=== PATIENT | male | born 1955 | race Caucasian/White ===

== ENCOUNTER 2021-09-08 20:48 | Inpatient (IN) | payer MEDICARE, MEDICAID ==
[~2021-09-08] VITALS: Ht 188 cm; Wt 110.0 kg
[~2021-09-08 20:48] MED LIST: NO HOME MEDS
--- NOTE | 2021-09-08 20:54 | NUR ---
SHIMA [facility] RELATIONS DIRECTOR [facility] [phone]
[2021-09-08] MEDS ORDERED: etomidate 2mg/ml inj. IV ONE (21:00)
[2021-09-08] MEDS ORDERED: rocuronium 10mg/ml inj IV ONE (21:00)
[2021-09-08] MEDS ORDERED: albuterol 2.5 MG/3 ML nebule CONTNEB PRN (21:00)
[2021-09-08] MEDS ORDERED: normal saline 1000ML IV soln IVB ONE (21:05)
[2021-09-08 21:06] VITALS: BP 138/96
[2021-09-08 21:22] LABS: ABG BASE EXCESS -13.8 mmol/L (-2.0-2.0); ABG HCO3 19.8 mmol/L (22.0-26.0); ABG OXYGEN SATURATION 97.9 % (94-97); ABG PCO2 (T) 85.6 mmHg (35.0-48.0); ABG PO2 (T) 154.4 mmHg (75.0-100.0); ALLEN'S TEST POSITIVE; FCOHb 4.5 % (0.0-3.9); FMetHb 0.1 % (0.0-1.5); FO2Hb 93.4 % (94-97); PATIENT TEMPERATURE 35.8; PEEP 5 cm H2O; RESPIRATORY RATE 20 b/min; TIDAL VOLUME 450 mL; TOTAL HEMOGLOBIN 14.1 G/dl (14.0-18.0)
[2021-09-08 21:25] LABS: BASOPHILS # (AUTO) 0.1 X10'3 (0-0.2); BASOPHILS % (AUTO) 0.4 % (0-1); EOSINOPHILS # (AUTO) 0.3 X10'3 (0-0.9); EOSINOPHILS % (AUTO) 2.3 % (0-6); HEMATOCRIT 41.6 % (42.0-52.0); HEMOGLOBIN 13.4 g/dl (14.0-17.9); LYMPHOCYTES % (AUTO) 48.7 % (21-51); MEAN CORPUSCULAR HEMOGLOBIN 30.3 PG (27.0-31.0); MEAN CORPUSCULAR HGB CONC 32.4 g/dL (33.0-36.5); MEAN CORPUSCULAR VOLUME 93.6 FL (78-98); MEAN PLATELET VOLUME 8.6 FL (7.4-10.4); MONOCYTES % (AUTO) 7.2 % (2-12); NEUTROPHILS # (AUTO) 5.9 X10'3 (1.8-7.7); NEUTROPHILS % (AUTO) 41.4 % (42-75); PLATELET COUNT 224 X10'3 (140-440); RED BLOOD COUNT 4.44 X10'6 (4.70-6.10); RED CELL DISTRIBUTION WIDTH 15.4 % (11.5-14.5); WHITE BLOOD COUNT 14.4 X10'3 (4.5-11.0)
[2021-09-08 21:29] LABS: CLARITY,URINE SLIGHTLY CLOUDY (Clear); COLOR,URINE YELLOW (Yellow); GLUCOSE, URINE NEGATIVE (Neg); KETONES,URINE NEGATIVE (Neg); LEUKOCYTE ESTERASE ,URINE NEGATIVE (Neg); NITRITES, URINE NEGATIVE (Neg); OCCULT BLOOD,URINE MODERATE (Neg); PROTEIN,URINE NEGATIVE (Neg)
--- NOTE | 2021-09-08 21:29 | NUR ---
RT AT BEDSIDE
[2021-09-08 21:35] LABS: UA COLLECTION TYPE NON-SPECIFIED
[2021-09-08 21:36] LABS: APTT 29 SECONDS (22-32)
[2021-09-08 21:39] LABS: ALANINE AMINOTRANSFERASE 137 U/L (12-78); ALBUMIN 3.6 G/DL (3.4-5.0); ALKALINE PHOSPHATASE 130 IU/L (46-116); ANION GAP 15 (8-16); ASPARTATE AMINO TRANSFERASE 122 U/L (10-37); BILIRUBIN,TOTAL 0.3 MG/DL (0.1-1.0); BLOOD UREA NITROGEN 18 MG/DL (7-18); BUN/CREATININE RATIO 15.1 (5.4-32.0); CALCIUM 8.7 MG/DL (8.5-10.1); CHLORIDE 102 MMOL/L (99-107); CREATININE 1.19 MG/DL (0.60-1.10); GLUCOSE 218 MG/DL (70-104); SODIUM 144 MMOL/L (135-145); TOTAL CARBON DIOXIDE 27.2 MMOL/L (24-32); TOTAL PROTEIN 7.1 G/DL (6.4-8.2); eGFR 61 ML/MIN
[2021-09-08 21:53] LABS: POTASSIUM 4.3 MMOL/L (3.5-5.1)
[2021-09-08] MEDS ORDERED: fentaNYL/PF 50MCG/1 ML 2ML syringe IV ONE (21:55)
[2021-09-08] MEDS ORDERED: MIDAZolam 5mg/ml 2ml vial IV ONE (21:55)
[2021-09-08 21:57] LABS: WBC,URINE 0-4 /HPF (0-4)
[2021-09-08 21:58] LABS: AMORPHOUS URATES 1+; BACTERIA,URINE FEW /HPF (Neg); MUCUS STRANDS FEW /LPF (Neg); SQUAMOUS EPITHELIAL CELL,UR FEW /LPF (FEW)
[2021-09-08] MEDS ORDERED: iohexol 350MG/ML 100ml bottle IV ONE (22:12)
[2021-09-08 22:26] VITALS: BP 74/53
[2021-09-08] MEDS ORDERED: etomidate 2mg/ml inj. ONE (23:00)
[2021-09-08] MEDS ORDERED: rocuronium bromide 100mg/10ml (10mg/ml) injection IV ONE (23:00)
[2021-09-08] MEDS: FENTANYL-0.9 % NACL/PF 100 ML IV PRN (23:11)
[2021-09-08] MEDS: midazolam 100mg in NS 100ml 100 ML IV PRN (23:12)
[2021-09-08] MEDS ORDERED: ondansetron/PF 4mg/2ml inj IV PRN (23:15)
[2021-09-08] MEDS ORDERED: potassium Cl 20 mEq SR tablet PO PRN (23:15)
[2021-09-08] MEDS ORDERED: normal saline 1000ml 1,000 ML IV SCH (23:15)
[2021-09-08] MEDS ORDERED: magnesium 2GM in 50ml NS 50 ML IV PRN (23:15)
[2021-09-08] MEDS ORDERED: Neutra Phos packet PO PRN (23:15)
[2021-09-08] MEDS ORDERED: acetaminophen 325mg tablet PO PRN (23:15)
[2021-09-08] MEDS ORDERED: magnesium 4gm in 100ml NS 100 ML IV PRN (23:15)
[2021-09-08] MEDS ORDERED: sodium phosphate inj. 15 MMOL in dextrose 5%-water 250 ML IV PRN (23:15)
[2021-09-08] MEDS ORDERED: morphine 2 MG/ML inj. syringe IV PRN (23:15)
[2021-09-08] MEDS ORDERED: dextrose 50%-water 50ml dispensing syringe IV PRN (23:15)
[2021-09-08] MEDS ORDERED: sodium phosphate inj. 30 MMOL in dextrose 5%-water 250 ML IV PRN (23:15)
[2021-09-08] MEDS ORDERED: CISatracurium **Bolus** 2 mg/ml inj IV PRN (23:15)
[2021-09-08] MEDS ORDERED: magnesium Cl slow-release 64mg tablet PO PRN (23:15)
[2021-09-08] MEDS ORDERED: magnesium hydroxide 30ml (MOM) UD suspension PO PRN (23:15)
[2021-09-08] MEDS ORDERED: LIDOcaine 2% 10ml TOPICAL JELLY (Urojet) TP ONE (23:15)
[2021-09-08] MEDS ORDERED: morphine 4 MG/ML inj SYRINge IV PRN (23:15)
[2021-09-08] MEDS ORDERED: CefTRIAXone/D5W-Rocephin 1gm 50 ML IV ONE (23:30)
[2021-09-08] MEDS ORDERED: azithromycin/NS 500mg/250ml 250 ML IV ONE (23:40)
[2021-09-08 23:57] LABS: BASOPHILS # (AUTO) 0.1 X10'3 (0-0.2); BASOPHILS % (AUTO) 0.4 % (0-1); EOSINOPHILS # (AUTO) 0.2 X10'3 (0-0.9); EOSINOPHILS % (AUTO) 0.8 % (0-6); HEMATOCRIT 41.1 % (42.0-52.0); HEMOGLOBIN 13.7 g/dl (14.0-17.9); LYMPHOCYTES # (AUTO) 2.5 X10'3 (1.1-4.8); LYMPHOCYTES % (AUTO) 10.4 % (21-51); MEAN CORPUSCULAR HEMOGLOBIN 30.4 PG (27.0-31.0); MEAN CORPUSCULAR HGB CONC 33.3 g/dL (33.0-36.5); MEAN CORPUSCULAR VOLUME 91.1 FL (78-98); MONOCYTES # (AUTO) 0.7 X10'3 (0-0.9); MONOCYTES % (AUTO) 3.1 % (2-12); NEUTROPHILS # (AUTO) 20.2 X10'3 (1.8-7.7); NEUTROPHILS % (AUTO) 85.3 % (42-75); PLATELET COUNT 301 X10'3 (140-440); RED BLOOD COUNT 4.51 X10'6 (4.70-6.10); RED CELL DISTRIBUTION WIDTH 15.2 % (11.5-14.5); WHITE BLOOD COUNT 23.6 X10'3 (4.5-11.0)
[2021-09-09] VITALS (31 sets, daily range): BP systolic 80–157; BP diastolic 48–96
[2021-09-09] MEDS ORDERED: heparin, porcine 5000 units/ml vial SQ SCH
[2021-09-09] MEDS ORDERED: VANCOMYCIN 1GM/200ML IVPB 200 ML IV ONE (00:05)
[2021-09-09] MEDS ORDERED: vancomycin 1,500 MG in NS 300ml IV soln IV ONE (00:08)
[2021-09-09 00:11] LABS: MAGNESIUM 2.2 MG/DL (1.5-2.4); PHOSPHORUS 5.6 MG/DL (2.3-4.5)
[2021-09-09 00:12] LABS: LACTIC SEPSIS 2.1 MMOL/L (0.4-2.0)
[2021-09-09] MEDS ORDERED: UNABLE TO OBTAIN (00:17)
[2021-09-09 00:49] LABS: PLATELET ESTIMATE NORMAL; TOTAL CELLS COUNTED 100
--- NOTE | 2021-09-09 01:00 | NUR ---
Admission -Pt admitted from ED, intubated & sedated unresponsive, Collier catheter not draining urine.
[2021-09-09 01:07] LABS: PLATELET ESTIMATE NORMAL; TOTAL CELLS COUNTED 100
[2021-09-09] MEDS: ipratropium/albuterol 3ml nebule NEB SCH ×7 (01:25→22:55)
[2021-09-09] MEDS: normal saline 1000ml 1,000 ML IV SCH ×2 (01:52→20:13)
--- NOTE | 2021-09-09 02:00 | NUR ---
Antibiotics not given in ED, had to wait for them to come up from pharmacy, late admin.
[2021-09-09] MEDS: K, MAG and/or Phos replacement - Verify level? MC SCH ×2 (03:00→08:00)
--- NOTE | 2021-09-09 03:00 | NUR ---
RN Note -No Collier output. Bladder scan showed 600 mls. Catheter removed and faviola red blood spurted from urethra. New Collier inserted immediately. 750 ml drained. Bleeding stopped.
[2021-09-09] MEDS: piperacillin/tazo 3.375gm/50ml 50 ML IV SCH ×3 (03:09→15:34)
[2021-09-09 03:30] LABS: BASOPHILS % (AUTO) 0.1 % (0-1); EOSINOPHILS # (AUTO) 0.1 X10'3 (0-0.9); EOSINOPHILS % (AUTO) 0.3 % (0-6); HEMATOCRIT 41.1 % (42.0-52.0); HEMOGLOBIN 13.3 g/dl (14.0-17.9); LYMPHOCYTES # (AUTO) 1.3 X10'3 (1.1-4.8); LYMPHOCYTES % (AUTO) 6.6 % (21-51); MEAN CORPUSCULAR HEMOGLOBIN 29.4 PG (27.0-31.0); MEAN CORPUSCULAR HGB CONC 32.3 g/dL (33.0-36.5); MEAN PLATELET VOLUME 7.9 FL (7.4-10.4); MONOCYTES # (AUTO) 1.8 X10'3 (0-0.9); MONOCYTES % (AUTO) 9.2 % (2-12); NEUTROPHILS # (AUTO) 16.3 X10'3 (1.8-7.7); NEUTROPHILS % (AUTO) 83.8 % (42-75); PLATELET COUNT 286 X10'3 (140-440); RED BLOOD COUNT 4.52 X10'6 (4.70-6.10); RED CELL DISTRIBUTION WIDTH 14.9 % (11.5-14.5); WHITE BLOOD COUNT 19.4 X10'3 (4.5-11.0)
[2021-09-09 03:50] LABS: ALBUMIN 3.3 G/DL (3.4-5.0); ANION GAP 4 (8-16); BLOOD UREA NITROGEN 23 MG/DL (7-18); BUN/CREATININE RATIO 20.4 (5.4-32.0); CALCIUM 6.9 MG/DL (8.5-10.1); CHLORIDE 110 MMOL/L (99-107); CREATININE 1.13 MG/DL (0.60-1.10); GLUCOSE 116 MG/DL (70-104); POTASSIUM 4.7 MMOL/L (3.5-5.1); SODIUM 145 MMOL/L (135-145); TOTAL CARBON DIOXIDE 30.9 MMOL/L (24-32); eGFR 65 ML/MIN
[2021-09-09] MEDS ORDERED: methylPREDNISolone sod succ 125mg/2ml vial IV ONE (04:30)
[2021-09-09] MEDS: midazolam 100mg in NS 100ml 100 ML IV PRN (04:52)
[2021-09-09] MEDS: methylPREDNISolone sod succ 125mg/2ml vial IV SCH ×2 (05:03→20:14)
[2021-09-09] MEDS: pantoprazole 40MG/NS 100ML BAG 100 ML IV SCH ×2 (05:08→07:54)
[2021-09-09] MEDS: CISatracurium besylate inj. 100 MG in normal saline 100ml IV soln 90 ML IV SCH ×2 (05:24→20:17)
[2021-09-09 05:33] LABS: URINE AMPHETAMINE SCREEN NEGATIVE (Neg); URINE BARBITUATE SCREEN NEGATIVE (Neg); URINE BENZODIAZEPINES SCREEN POSITIVE (Neg); URINE CANNABINOID SCREEN NEGATIVE (Neg); URINE COCAINE SCREEN NEGATIVE (Neg); URINE METHADONE SCREEN NEGATIVE (Neg); URINE OPIATE SCREEN NEGATIVE (Neg); URINE PHENCYCLIDINE SCREEN NEGATIVE (Neg)
[2021-09-09] MEDS: NORepinephrine 8mg/ 250ml NS 250 ML IV SCH ×2 (07:30→22:22)
[2021-09-09] MEDS ORDERED: NORepinephrine 8mg/ 250ml NS 250 ML IV ONE (07:33)
[2021-09-09] MEDS: FENTANYL-0.9 % NACL/PF 100 ML IV PRN ×2 (07:51→23:36)
[2021-09-09] MEDS ORDERED: K and/or MAG REPLACEMENT MC SCH (08:00)
[2021-09-09] MEDS ORDERED: pantoprazole 40MG/NS 100ML BAG 100 ML IV SCH (08:00)
[2021-09-09] MEDS ORDERED: famotidine/PF 10 mg/ml inj IV SCH (08:00)
[2021-09-09 08:09] LABS: ABG BASE EXCESS -8.7 mmol/L (-2.0-2.0); ABG HCO3 23.4 mmol/L (22.0-26.0); ABG OXYGEN SATURATION 99.3 % (94-97); ABG PCO2 (T) 70.3 mmHg (35.0-48.0); ABG PO2 (T) 379.9 mmHg (75.0-100.0); ALLEN'S TEST POSITIVE; FMetHb 0.1 % (0.0-1.5); FO2Hb 98.2 % (94-97); PATIENT TEMPERATURE 32.3; PEEP 5 cm H2O; RESPIRATORY RATE 20 b/min; TIDAL VOLUME 400 mL; TOTAL HEMOGLOBIN 12.9 G/dl (14.0-18.0)
[2021-09-09] MEDS: insulin Lispro (HumaLOG) vial - multi-dose SQ SCH ×3 (09:00→18:00)
[2021-09-09 09:15] LABS: CKMB RELATIVE INDEX 3.2 RATIO (0-2.5); MAGNESIUM 1.9 MG/DL (1.5-2.4)
[2021-09-09] MEDS: heparin, porcine 5000 units/ml vial SQ SCH ×2 (09:30→20:14)
[2021-09-09 09:47] LABS: APTT 32 SECONDS (22-32)
[2021-09-09 11:07] LABS: BASOPHILS % (AUTO) 0.1 % (0-1); EOSINOPHILS % (AUTO) 0 % (0-6); HEMATOCRIT 38.9 % (42.0-52.0); HEMOGLOBIN 12.7 g/dl (14.0-17.9); LYMPHOCYTES # (AUTO) 0.4 X10'3 (1.1-4.8); LYMPHOCYTES % (AUTO) 2.3 % (21-51); MEAN CORPUSCULAR HEMOGLOBIN 29.8 PG (27.0-31.0); MEAN CORPUSCULAR HGB CONC 32.5 g/dL (33.0-36.5); MEAN CORPUSCULAR VOLUME 91.5 FL (78-98); MEAN PLATELET VOLUME 8.3 FL (7.4-10.4); MONOCYTES % (AUTO) 5.4 % (2-12); NEUTROPHILS # (AUTO) 17.2 X10'3 (1.8-7.7); NEUTROPHILS % (AUTO) 92.2 % (42-75); PLATELET COUNT 208 X10'3 (140-440); RED BLOOD COUNT 4.25 X10'6 (4.70-6.10); RED CELL DISTRIBUTION WIDTH 15.3 % (11.5-14.5); WHITE BLOOD COUNT 18.6 X10'3 (4.5-11.0)
[2021-09-09 11:26] LABS: ALANINE AMINOTRANSFERASE 170 U/L (12-78); ALBUMIN/GLOBULIN RATIO 1.2 (1.1-1.5); ALKALINE PHOSPHATASE 103 IU/L (46-116); ANION GAP 10 (8-16); ASPARTATE AMINO TRANSFERASE 152 U/L (10-37); BILIRUBIN,TOTAL 0.5 MG/DL (0.1-1.0); BLOOD UREA NITROGEN 28 MG/DL (7-18); CALCIUM 7.3 MG/DL (8.5-10.1); CHLORIDE 110 MMOL/L (99-107); CREATININE 1.12 MG/DL (0.60-1.10); GLUCOSE 117 MG/DL (70-104); MAGNESIUM 1.9 MG/DL (1.5-2.4); SODIUM 147 MMOL/L (135-145); TOTAL CARBON DIOXIDE 27.1 MMOL/L (24-32); TOTAL PROTEIN 5.6 G/DL (6.4-8.2); eGFR 66 ML/MIN
--- NOTE | 2021-09-09 12:41 | NUR ---
Angel Consult: Pt intubated s/p cardiac arrest DX COPD exacerbation on hypothermia protocol per EMR. OG in place w/ MAP 70 this AM during rounds. TF recs below in case prolonged intubation. Angel 10 w/ skin intact per EMR. Will continue to monitor for nutrition support needs on vent. Rec: 1. IF TF; Pivot 1.5 at 70ml/hr goal; would provide 1680ml volume/day, 2520 kcals, 1260ml water, and 158g protein. 2. IF TF; additional water flush 200ml Q4H 3. IF TF; PALB Q /; daily wts 4. routine bowel care 5. upon extubation; advance diet as medically indicated to regular Addendum: 09/09/21 at [address] Amended: Links added.
[2021-09-09] MEDS: vancomycin/NS 1 GM ADD-VANTAGE 250 ML IV SCH (13:42)
[2021-09-09] MEDS ORDERED: NICO-687 TOP (15:32)
[2021-09-09] MEDS ORDERED: ASPI-1071 PO (15:32)
[2021-09-09] MEDS ORDERED: SIME180C40 PO (15:32)
[2021-09-09] MEDS ORDERED: DOCU100C40 PO (15:32)
[2021-09-09] MEDS ORDERED: CARV6.253 PO (15:32)
[2021-09-09] MEDS ORDERED: FURO-150 PO (15:32)
[2021-09-09] MEDS ORDERED: ALBU2.5V13 NEB (15:32)
[2021-09-09] MEDS ORDERED: FLUT1BLS13 PO (15:32)
[2021-09-09] MEDS ORDERED: NICO-503 PO (15:32)
[2021-09-09] MEDS ORDERED: NICO-731 TOP (15:32)
[2021-09-09] MEDS ORDERED: ALBU8.5H17 INH (15:32)
[2021-09-09] MEDS ORDERED: ATOR40TA71 PO (15:32)
[2021-09-09] MEDS ORDERED: LISI5TAB22 PO (15:32)
[2021-09-09 16:22] LABS: ABG BASE EXCESS -6.7 mmol/L (-2.0-2.0); ABG HCO3 22.5 mmol/L (22.0-26.0); ABG OXYGEN SATURATION 96.1 % (94-97); ABG PCO2 (T) 53.4 mmHg (35.0-48.0); ABG PO2 (T) 69.8 mmHg (75.0-100.0); ALLEN'S TEST POSITIVE; FCOHb 0.6 % (0.0-3.9); FMetHb 0.1 % (0.0-1.5); FO2Hb 95.4 % (94-97); PATIENT TEMPERATURE 33.6; PEEP 5 cm H2O; RESPIRATORY RATE 24 b/min; TIDAL VOLUME 400 mL; TOTAL HEMOGLOBIN 13.7 G/dl (14.0-18.0)
[2021-09-09 19:39] LABS: ALBUMIN 2.7 G/DL (3.4-5.0); ANION GAP 13 (8-16); BLOOD UREA NITROGEN 26 MG/DL (7-18); BUN/CREATININE RATIO 25.2 (5.4-32.0); CALCIUM 7.6 MG/DL (8.5-10.1); CHLORIDE 110 MMOL/L (99-107); CKMB RELATIVE INDEX 2.8 RATIO (0-2.5); CREATINE KINASE 391 U/L (39-308); CREATININE 1.03 MG/DL (0.60-1.10); GLUCOSE 153 MG/DL (70-104); POTASSIUM 3.5 MMOL/L (3.5-5.1); SODIUM 146 MMOL/L (135-145); TOTAL CARBON DIOXIDE 22.9 MMOL/L (24-32); eGFR 72 ML/MIN
[2021-09-09] MEDS: lactobacillus rhamnosus 10,000 MMU CELLS/CAPSULE PO SCH (20:14)
[2021-09-09] MEDS ORDERED: gelatin sponge, absorbable (Gelfoam 100) sponge TP ONE (20:35)
[2021-09-09 21:57] LABS: ABG HCO3 20.8 mmol/L (22.0-26.0); ABG OXYGEN SATURATION 94.9 % (94-97); ABG PO2 (T) 56.4 mmHg (75.0-100.0); ALLEN'S TEST POSITIVE; FCOHb 0.6 % (0.0-3.9); FMetHb 0.1 % (0.0-1.5); FO2Hb 94.2 % (94-97); PATIENT TEMPERATURE 33.3; PEEP 5 cm H2O; RESPIRATORY RATE 26 b/min; TIDAL VOLUME 400 mL; TOTAL HEMOGLOBIN 13.6 G/dl (14.0-18.0)
[2021-09-10] VITALS (36 sets, daily range): BP systolic 86–146; BP diastolic 52–79
[2021-09-10] MEDS: vancomycin/NS 1 GM ADD-VANTAGE 250 ML IV SCH ×2 (00:16→13:04)
[2021-09-10] MEDS: piperacillin/tazo 3.375gm/50ml 50 ML IV SCH ×4 (00:19→23:50)
[2021-09-10] MEDS: normal saline 1000ml 1,000 ML IV SCH ×2 (01:55→09:59)
[2021-09-10 02:45] LABS: BASOPHILS % (AUTO) 0 % (0-1); EOSINOPHILS % (AUTO) 0 % (0-6); HEMATOCRIT 36.4 % (42.0-52.0); HEMOGLOBIN 11.9 g/dl (14.0-17.9); LYMPHOCYTES # (AUTO) 0.5 X10'3 (1.1-4.8); LYMPHOCYTES % (AUTO) 3.1 % (21-51); MEAN CORPUSCULAR HEMOGLOBIN 29.5 PG (27.0-31.0); MEAN CORPUSCULAR HGB CONC 32.6 g/dL (33.0-36.5); MEAN CORPUSCULAR VOLUME 90.5 FL (78-98); MEAN PLATELET VOLUME 8.4 FL (7.4-10.4); MONOCYTES # (AUTO) 0.5 X10'3 (0-0.9); MONOCYTES % (AUTO) 2.9 % (2-12); NEUTROPHILS # (AUTO) 15.9 X10'3 (1.8-7.7); PLATELET COUNT 178 X10'3 (140-440); RED BLOOD COUNT 4.02 X10'6 (4.70-6.10); RED CELL DISTRIBUTION WIDTH 15.3 % (11.5-14.5); WHITE BLOOD COUNT 16.9 X10'3 (4.5-11.0)
[2021-09-10] MEDS: ipratropium/albuterol 3ml nebule NEB SCH ×6 (02:46→23:30)
[2021-09-10 02:47] LABS: ALBUMIN 2.4 G/DL (3.4-5.0); ANION GAP 13 (8-16); BLOOD UREA NITROGEN 23 MG/DL (7-18); BUN/CREATININE RATIO 24.5 (5.4-32.0); CALCIUM 7.8 MG/DL (8.5-10.1); CHLORIDE 111 MMOL/L (99-107); CREATININE 0.94 MG/DL (0.60-1.10); GLUCOSE 179 MG/DL (70-104); MAGNESIUM 1.8 MG/DL (1.5-2.4); PHOSPHORUS 2.6 MG/DL (2.3-4.5); SODIUM 145 MMOL/L (135-145); TOTAL CARBON DIOXIDE 21.5 MMOL/L (24-32); eGFR 81 ML/MIN
[2021-09-10 02:49] LABS: POTASSIUM 2.9 MMOL/L (3.5-5.1)
[2021-09-10 03:06] LABS: ABG BASE EXCESS -5.1 mmol/L (-2.0-2.0); ABG HCO3 21.8 mmol/L (22.0-26.0); ABG OXYGEN SATURATION 95.9 % (94-97); ABG PCO2 (T) 40.5 mmHg (35.0-48.0); ABG PO2 (T) 62.9 mmHg (75.0-100.0); ALLEN'S TEST POSITIVE; FCOHb 0.2 % (0.0-3.9); FMetHb 0.3 % (0.0-1.5); FO2Hb 95.4 % (94-97); PATIENT TEMPERATURE 33.1; PEEP 5 cm H2O; RESPIRATORY RATE 26 b/min; TIDAL VOLUME 400 mL; TOTAL HEMOGLOBIN 12.7 G/dl (14.0-18.0)
[2021-09-10] MEDS: midazolam 100mg in NS 100ml 100 ML IV PRN ×4 (03:51→23:11)
[2021-09-10] MEDS: potassium Cl 20 mEq SR tablet PO PRN ×2 (04:14→10:19)
[2021-09-10] MEDS: lactobacillus rhamnosus 10,000 MMU CELLS/CAPSULE PO SCH ×2 (08:00→19:14)
[2021-09-10] MEDS: pantoprazole 40MG/NS 100ML BAG 100 ML IV SCH (08:00)
[2021-09-10] MEDS: methylPREDNISolone sod succ 125mg/2ml vial IV SCH ×2 (08:00→19:14)
[2021-09-10] MEDS: heparin, porcine 5000 units/ml vial SQ SCH ×2 (08:00→19:15)
[2021-09-10] MEDS: K, MAG and/or Phos replacement - Verify level? MC SCH (08:30)
[2021-09-10 08:56] LABS: BASOPHILS % (AUTO) 0.2 % (0-1); EOSINOPHILS % (AUTO) 0 % (0-6); HEMOGLOBIN 11.8 g/dl (14.0-17.9); LYMPHOCYTES # (AUTO) 0.7 X10'3 (1.1-4.8); LYMPHOCYTES % (AUTO) 3.2 % (21-51); MEAN CORPUSCULAR HEMOGLOBIN 29.1 PG (27.0-31.0); MEAN PLATELET VOLUME 8.7 FL (7.4-10.4); MONOCYTES # (AUTO) 0.8 X10'3 (0-0.9); MONOCYTES % (AUTO) 3.8 % (2-12); NEUTROPHILS % (AUTO) 92.8 % (42-75); PLATELET COUNT 203 X10'3 (140-440); RED BLOOD COUNT 4.07 X10'6 (4.70-6.10); RED CELL DISTRIBUTION WIDTH 15.3 % (11.5-14.5); WHITE BLOOD COUNT 21.5 X10'3 (4.5-11.0)
[2021-09-10] MEDS: insulin Lispro (HumaLOG) vial - multi-dose SQ SCH ×3 (09:00→14:11)
[2021-09-10 09:26] LABS: ALBUMIN 2.5 G/DL (3.4-5.0); ANION GAP 12 (8-16); BLOOD UREA NITROGEN 23 MG/DL (7-18); BUN/CREATININE RATIO 23.2 (5.4-32.0); CALCIUM 7.8 MG/DL (8.5-10.1); CHLORIDE 111 MMOL/L (99-107); CKMB RELATIVE INDEX 2.4 RATIO (0-2.5); CREATINE KINASE 309 U/L (39-308); CREATININE 0.99 MG/DL (0.60-1.10); GLUCOSE 196 MG/DL (70-104); MAGNESIUM 1.8 MG/DL (1.5-2.4); PHOSPHORUS 2.4 MG/DL (2.3-4.5); POTASSIUM 3.3 MMOL/L (3.5-5.1); SODIUM 146 MMOL/L (135-145); TOTAL CARBON DIOXIDE 23.2 MMOL/L (24-32); eGFR 76 ML/MIN
[2021-09-10] MEDS: FENTANYL-0.9 % NACL/PF 100 ML IV PRN ×4 (09:43→23:11)
[2021-09-10] MEDS ORDERED: PERFLUTREN PROTEIN-A MICROSPHR (Optison) 0.22 MG/ML 3ML VIAL IV ONE (12:10)
[2021-09-10] MEDS ORDERED: VANCOMYCIN LEVEL IV ONE (12:30)
[2021-09-10 13:45] LABS: ABG BASE EXCESS -4.8 mmol/L (-2.0-2.0); ABG HCO3 22.3 mmol/L (22.0-26.0); ABG OXYGEN SATURATION 93.4 % (94-97); ABG PCO2 (T) 47.9 mmHg (35.0-48.0); ABG PO2 (T) 64.4 mmHg (75.0-100.0); ALLEN'S TEST POSITIVE; FCOHb 0.3 % (0.0-3.9); FMetHb 0.1 % (0.0-1.5); PEEP 10 cm H2O; RESPIRATORY RATE 26 b/min; TIDAL VOLUME 400 mL; TOTAL HEMOGLOBIN 12.1 G/dl (14.0-18.0)
[2021-09-10 14:56] LABS: BASOPHILS % (AUTO) 0.1 % (0-1); EOSINOPHILS % (AUTO) 0 % (0-6); HEMATOCRIT 33.3 % (42.0-52.0); LYMPHOCYTES # (AUTO) 0.6 X10'3 (1.1-4.8); LYMPHOCYTES % (AUTO) 2.7 % (21-51); MEAN CORPUSCULAR HEMOGLOBIN 29.4 PG (27.0-31.0); MEAN CORPUSCULAR HGB CONC 33.1 g/dL (33.0-36.5); MEAN PLATELET VOLUME 8.3 FL (7.4-10.4); MONOCYTES # (AUTO) 0.6 X10'3 (0-0.9); MONOCYTES % (AUTO) 2.9 % (2-12); NEUTROPHILS # (AUTO) 19.8 X10'3 (1.8-7.7); NEUTROPHILS % (AUTO) 94.3 % (42-75); PLATELET COUNT 208 X10'3 (140-440); RED BLOOD COUNT 3.74 X10'6 (4.70-6.10); RED CELL DISTRIBUTION WIDTH 15.4 % (11.5-14.5)
[2021-09-10 15:10] LABS: ALANINE AMINOTRANSFERASE 94 U/L (12-78); ALBUMIN 2.4 G/DL (3.4-5.0); ALKALINE PHOSPHATASE 77 IU/L (46-116); ANION GAP 10 (8-16); ASPARTATE AMINO TRANSFERASE 52 U/L (10-37); BILIRUBIN,TOTAL 0.3 MG/DL (0.1-1.0); BLOOD UREA NITROGEN 23 MG/DL (7-18); BUN/CREATININE RATIO 23.2 (5.4-32.0); CALCIUM 7.8 MG/DL (8.5-10.1); CHLORIDE 114 MMOL/L (99-107); CREATININE 0.99 MG/DL (0.60-1.10); GLUCOSE 167 MG/DL (70-104); POTASSIUM 3.7 MMOL/L (3.5-5.1); SODIUM 147 MMOL/L (135-145); TOTAL CARBON DIOXIDE 23.3 MMOL/L (24-32); TOTAL PROTEIN 4.9 G/DL (6.4-8.2); eGFR 76 ML/MIN
[2021-09-10 15:16] LABS: HEMOGLOBIN A1C 6.1 % (4.5-6.2)
[2021-09-10 15:22] LABS: CKMB RELATIVE INDEX 2.5 RATIO (0-2.5); CREATINE KINASE 222 U/L (39-308); MAGNESIUM 1.9 MG/DL (1.5-2.4)
[2021-09-10] MEDS ORDERED: aspirin 81mg tab.chew PO ONE (16:52)
[2021-09-10] MEDS: NORepinephrine 8mg/ 250ml NS 250 ML IV SCH (18:59)
--- NOTE | 2021-09-10 19:00 | NUR ---
[facility] manager home called with medical information. Pt's pharmacy is [facility] on [address]. Clinic: [facility] Physician: Hermelinda Hernandez MD Cutter Wet Machine: Dr. Julio Gil
[2021-09-11] VITALS (32 sets, daily range): BP systolic 95–151; BP diastolic 58–88
[2021-09-11] MEDS ORDERED: VANCOmycin 1250MG/NS 250ml Bag 250 ML IV SCH (01:00)
[2021-09-11] MEDS: NORepinephrine 8mg/ 250ml NS 250 ML IV SCH ×2 (01:18→15:14)
[2021-09-11] MEDS: insulin Lispro (HumaLOG) vial - multi-dose SQ SCH ×2 (02:21→08:47)
[2021-09-11] MEDS: FENTANYL-0.9 % NACL/PF 100 ML IV PRN ×6 (02:44→22:52)
[2021-09-11] MEDS: normal saline 1000ml 1,000 ML IV SCH ×2 (02:44→17:28)
[2021-09-11] MEDS: midazolam 100mg in NS 100ml 100 ML IV PRN ×2 (02:44→08:26)
[2021-09-11] MEDS: ipratropium/albuterol 3ml nebule NEB SCH ×6 (02:57→23:19)
[2021-09-11 03:11] LABS: BASOPHILS % (AUTO) 0 % (0-1); EOSINOPHILS % (AUTO) 0 % (0-6); HEMATOCRIT 33.2 % (42.0-52.0); HEMOGLOBIN 10.8 g/dl (14.0-17.9); LYMPHOCYTES # (AUTO) 0.4 X10'3 (1.1-4.8); LYMPHOCYTES % (AUTO) 2.3 % (21-51); MEAN CORPUSCULAR HEMOGLOBIN 29.4 PG (27.0-31.0); MEAN CORPUSCULAR HGB CONC 32.6 g/dL (33.0-36.5); MEAN PLATELET VOLUME 8.8 FL (7.4-10.4); MONOCYTES # (AUTO) 0.5 X10'3 (0-0.9); MONOCYTES % (AUTO) 3.2 % (2-12); NEUTROPHILS # (AUTO) 16.4 X10'3 (1.8-7.7); NEUTROPHILS % (AUTO) 94.5 % (42-75); PLATELET COUNT 204 X10'3 (140-440); RED BLOOD COUNT 3.69 X10'6 (4.70-6.10); RED CELL DISTRIBUTION WIDTH 15.5 % (11.5-14.5); WHITE BLOOD COUNT 17.3 X10'3 (4.5-11.0)
[2021-09-11 03:27] LABS: ALBUMIN 2.3 G/DL (3.4-5.0); ANION GAP 8 (8-16); BLOOD UREA NITROGEN 24 MG/DL (7-18); BUN/CREATININE RATIO 23.8 (5.4-32.0); CALCIUM 8.1 MG/DL (8.5-10.1); CHLORIDE 114 MMOL/L (99-107); CREATININE 1.01 MG/DL (0.60-1.10); GLUCOSE 157 MG/DL (70-104); MAGNESIUM 1.7 MG/DL (1.5-2.4); PHOSPHORUS 2.5 MG/DL (2.3-4.5); POTASSIUM 3.9 MMOL/L (3.5-5.1); SODIUM 146 MMOL/L (135-145); TOTAL CARBON DIOXIDE 23.7 MMOL/L (24-32); eGFR 74 ML/MIN
[2021-09-11 03:30] LABS: ABG BASE EXCESS -4.2 mmol/L (-2.0-2.0); ABG HCO3 21.6 mmol/L (22.0-26.0); ABG OXYGEN SATURATION 93.8 % (94-97); ABG PCO2 (T) 41.8 mmHg (35.0-48.0); FCOHb 0.1 % (0.0-3.9); FMetHb 0.3 % (0.0-1.5); FO2Hb 93.4 % (94-97); PATIENT TEMPERATURE 36.7; PEEP 10 cm H2O; RESPIRATORY RATE 26 b/min; TIDAL VOLUME 450 mL; TOTAL HEMOGLOBIN 11.1 G/dl (14.0-18.0)
--- NOTE | 2021-09-11 07:30 | NUR ---
Upon assessment of patient, pupils were assessed. It was noted that the patient's left eye had something in it that seemed to look like a contact. The patient's eye was flushed with saline with no movement of the object. Another RN was brought into the room to have a second opinion. The object was easily removed and seemed to be a round plastic item that is firm. The item was placed into a cup with saline. Will inform .
[2021-09-11] MEDS ORDERED: aspirin 81mg, enteric-coated 1 TAB TABLET.DR PO SCH (08:00)
[2021-09-11] MEDS: K, MAG and/or Phos replacement - Verify level? MC SCH (08:00)
[2021-09-11] MEDS: methylPREDNISolone sod succ 125mg/2ml vial IV SCH ×2 (08:26→19:00)
[2021-09-11] MEDS: piperacillin/tazo 3.375gm/50ml 50 ML IV SCH ×3 (08:26→23:00)
[2021-09-11] MEDS: pantoprazole 40MG/NS 100ML BAG 100 ML IV SCH (08:26)
[2021-09-11] MEDS: lactobacillus rhamnosus 10,000 MMU CELLS/CAPSULE PO SCH (08:26)
[2021-09-11] MEDS: heparin, porcine 5000 units/ml vial SQ SCH ×2 (08:27→19:00)
--- NOTE | 2021-09-11 12:10 | NUR ---
Patient's versed turned off and then shortly after the patient started to tense up and was not getting his set tidal volumes on the ventilator and began to desaturation. Patient was suctioned and placed on 100% FiO2. Shortly after, patient recovered without any change in sedation. MD tolliver.
--- NOTE | 2021-09-11 13:00 | NUR ---
Per Dr. Boo during rounds: -Turn off Versed and see how the patient does. If he does poorly the give a 2 mg versed bolus and restart the drip and half of the rate which would be 5mg/hr. -Put in a tube feed consult -Send the foreign body from the eye to pathology for identification
[2021-09-11] MEDS ORDERED: fluconazole-Diflucan 200mg/NS 100 ML IV SCH (13:50)
--- NOTE | 2021-09-11 14:44 | NUR ---
TF consult: Pt remains intubated and sedated w/ TF to start per MD, see recs below. Rec: 1. Continuous TF using Pivot 1.5 at 70ml/hr goal; would provide 1680ml volume/day, 2520 kcals, 1260ml water, and 158g protein. 2. Additional water flush 200ml Q4H 3. PALB Q /; daily wts 4. routine bowel care 5. upon extubation; advance diet as medically indicated to regular Addendum: 09/11/21 at [address] Amended: Links added.
[2021-09-11] MEDS: fluconazole/NS 400mg/200ml bag 200 ML IV SCH (15:52)
[2021-09-11] MEDS ORDERED: acetaminophen 325mg/10.15ml oral unit dose solution OGT PRN (15:54)
[2021-09-11] MEDS ORDERED: Neutra Phos packet OGT PRN (15:55)
[2021-09-11] MEDS ORDERED: magnesium hydroxide 30ml (MOM) UD suspension OGT PRN (15:55)
[2021-09-11] MEDS ORDERED: POTASSIUM BICARB 20meq eff tab 20 MEQ TABLET.EFF PO PRN (15:56)
[2021-09-11] MEDS ORDERED: POTASSIUM BICARB 20meq eff tab 20 MEQ TABLET.EFF OGT PRN ×2 (15:57)
[2021-09-11] MEDS ORDERED: SIMETHICONE PO PRN (18:40)
[2021-09-11] MEDS ORDERED: simethicone 125mg capsule PO PRN (18:55)
[2021-09-11] MEDS: carvedilol 6.25mg tablet PO SCH (19:00)
[2021-09-11] MEDS: lactobacillus rhamnosus 10,000 MMU CELLS/CAPSULE OGT SCH (19:00)
[2021-09-11] MEDS: furosemide 20MG tablet PO SCH (19:03)
[2021-09-11] MEDS: insulin glargine (Lantus) pen - multi-dose SQ SCH (20:50)
[2021-09-11] MEDS ORDERED: propofol 1000mg/100ml bottle 100 ML IV ONE (23:37)
[2021-09-11] MEDS: propofol 1000mg/100ml bottle 100 ML IV SCH (23:47)
[2021-09-12] VITALS (31 sets, daily range): BP systolic 90–130; BP diastolic 51–83
[2021-09-12] MEDS: CISatracurium besylate inj. 100 MG in normal saline 100ml IV soln 90 ML IV SCH (00:31)
[2021-09-12 02:29] LABS: ALBUMIN 2.2 G/DL (3.4-5.0); ANION GAP 9 (8-16); BLOOD UREA NITROGEN 28 MG/DL (7-18); BUN/CREATININE RATIO 24.8 (5.4-32.0); CHLORIDE 116 MMOL/L (99-107); CREATININE 1.13 MG/DL (0.60-1.10); GLUCOSE 138 MG/DL (70-104); PREALBUMIN 15.4 MG/DL (19-36); SODIUM 149 MMOL/L (135-145); TOTAL CARBON DIOXIDE 23.9 MMOL/L (24-32); TRIGLYCERIDES 168 MG/DL (20-135); eGFR 65 ML/MIN
[2021-09-12] MEDS: FENTANYL-0.9 % NACL/PF 100 ML IV PRN ×4 (02:58→23:49)
[2021-09-12 03:19] LABS: BASOPHILS % (AUTO) 0.1 % (0-1); EOSINOPHILS % (AUTO) 0 % (0-6); HEMATOCRIT 29.4 % (42.0-52.0); HEMOGLOBIN 9.7 g/dl (14.0-17.9); LYMPHOCYTES # (AUTO) 0.2 X10'3 (1.1-4.8); LYMPHOCYTES % (AUTO) 2.6 % (21-51); MEAN CORPUSCULAR HEMOGLOBIN 29.8 PG (27.0-31.0); MEAN CORPUSCULAR HGB CONC 32.9 g/dL (33.0-36.5); MEAN CORPUSCULAR VOLUME 90.6 FL (78-98); MEAN PLATELET VOLUME 8.8 FL (7.4-10.4); MONOCYTES # (AUTO) 0.2 X10'3 (0-0.9); MONOCYTES % (AUTO) 2.8 % (2-12); NEUTROPHILS # (AUTO) 8.4 X10'3 (1.8-7.7); NEUTROPHILS % (AUTO) 94.5 % (42-75); PLATELET COUNT 160 X10'3 (140-440); RED BLOOD COUNT 3.25 X10'6 (4.70-6.10); RED CELL DISTRIBUTION WIDTH 16.1 % (11.5-14.5); WHITE BLOOD COUNT 8.9 X10'3 (4.5-11.0)
[2021-09-12] MEDS: ipratropium/albuterol 3ml nebule NEB SCH ×5 (03:46→19:08)
[2021-09-12 05:07] LABS: ABG BASE EXCESS -3.2 mmol/L (-2.0-2.0); ABG HCO3 20.5 mmol/L (22.0-26.0); ABG OXYGEN SATURATION 94.7 % (94-97); ABG PCO2 (T) 31.8 mmHg (35.0-48.0); ABG PO2 (T) 71.7 mmHg (75.0-100.0); ALLEN'S TEST POSITIVE; FCOHb 0.3 % (0.0-3.9); FO2Hb 94.4 % (94-97); PATIENT TEMPERATURE 36.7; PEEP 10 cm H2O; RESPIRATORY RATE 26 b/min; TIDAL VOLUME 450 mL; TOTAL HEMOGLOBIN 10.3 G/dl (14.0-18.0)
[2021-09-12] MEDS: normal saline 1000ml 1,000 ML IV SCH ×2 (06:03→19:54)
[2021-09-12] MEDS: NORepinephrine 8mg/ 250ml NS 250 ML IV SCH ×2 (06:03→19:06)
[2021-09-12] MEDS: hydrALAZINE 20mg/ml inj. IV SCH ×2 (07:03→13:34)
[2021-09-12] MEDS: K, MAG and/or Phos replacement - Verify level? MC SCH (07:04)
[2021-09-12] MEDS: carvedilol 6.25mg tablet PO SCH ×2 (07:04→19:52)
[2021-09-12] MEDS: pantoprazole 40MG/NS 100ML BAG 100 ML IV SCH (07:19)
[2021-09-12] MEDS: fluconazole/NS 400mg/200ml bag 200 ML IV SCH (07:19)
[2021-09-12] MEDS: lactobacillus rhamnosus 10,000 MMU CELLS/CAPSULE OGT SCH ×2 (07:20→19:52)
[2021-09-12] MEDS: atorvastatin 20mg tablet OGT SCH (07:20)
[2021-09-12] MEDS: piperacillin/tazo 3.375gm/50ml 50 ML IV SCH ×3 (07:20→23:48)
[2021-09-12] MEDS: aspirin 81mg tab.chew OGT SCH (07:20)
[2021-09-12] MEDS: methylPREDNISolone sod succ 125mg/2ml vial IV SCH ×2 (07:20→19:52)
[2021-09-12] MEDS: heparin, porcine 5000 units/ml vial SQ SCH ×2 (07:21→19:52)
[2021-09-12] MEDS: propofol 1000mg/100ml bottle 100 ML IV SCH (07:33)
[2021-09-12 07:53] LABS: MAGNESIUM 2.1 MG/DL (1.5-2.4); PHOSPHORUS 3.1 MG/DL (2.3-4.5)
[2021-09-12] MEDS ORDERED: non-formulary drug (Atorvastatin Calcium 1 TAB) PO SCH (08:00)
[2021-09-12] MEDS ORDERED: aspirin 81mg, enteric-coated 1 TAB TABLET.DR PO SCH (08:00)
[2021-09-12] MEDS: furosemide 20MG tablet PO SCH (08:00)
[2021-09-12] MEDS ORDERED: atorvastatin 20mg tablet PO SCH (08:00)
--- NOTE | 2021-09-12 11:11 | NUR ---
Reassessment: Pt remains intubated and sedated, now receiving TF at goal of Pivot 1.5 at 70ml/hr. Noted pt started on Propofol and current rate at 6.36ml/hr providing additional 168kcals/day. TF does not need to be adjusted at this time. Noted serum Na 149 though lab was drawn around when TF and water flushes were just started. Will hold on adjusting water flushes at this time. HUSSEIN d/w RN regarding TF and water flushes. [facility] 09/11. No change to recommendations at this time, will continue to monitor. Rec: 1. Continuous TF using Pivot 1.5 at 70ml/hr goal; would provide 1680ml volume/day, 2520 kcals, 1260ml water, and 158g protein. 2. Monitor Propofol rate and adjust TF as appropriate 2. Additional water flush 200ml Q4H; monitor serum Na 3. PALB Q /; daily wts 4. routine bowel care 5. upon extubation; advance diet as medically indicated to regular Addendum: 09/12/21 at [address] Amended: Links added.
[2021-09-12 12:30] LABS: OXYGEN SATURATION (MIXED VEN) 44.3 % (60-80); PO2 MIXED VENOUS (TEMP COR) 24.2 mmHg (35-46)
[2021-09-12] MEDS ORDERED: VANCOMYCIN LEVEL IV ONE (12:30)
[2021-09-12 12:36] LABS: ABG BASE EXCESS -5.2 mmol/L (-2.0-2.0); ABG HCO3 26.3 mmol/L (22.0-26.0); ABG OXYGEN SATURATION 98.8 % (94-97); ABG PCO2 (T) 77.6 mmHg (35.0-48.0); ABG PO2 (T) 183.3 mmHg (75.0-100.0); ALLEN'S TEST POSITIVE; FMetHb 0.1 % (0.0-1.5); FO2Hb 96.7 % (94-97); PEEP 5 cm H2O; RESPIRATORY RATE 20 b/min; TIDAL VOLUME 400 mL; TOTAL HEMOGLOBIN 13.9 G/dl (14.0-18.0)
[2021-09-12] MEDS ORDERED: mineral oil/petrolatum ophthal oint EACHEYE PRN (14:15)
--- NOTE | 2021-09-12 18:00 | NUR ---
Patient taken to MRI with x2 RN, X2 RT, transportation job titles and anesthesiology technologist. Patient attached to transport monitor with no change in vitals. Dialmeter added to the Fentanyl tubing to maintain patient's current rate. Patient transferred to the transport ventilator and tolerated well. Patient was brought back to the room and maintained vitals well. Patient cleaned up and bedding changed.
--- NOTE | 2021-09-12 18:56 | NUR ---
called critical findings of MRI Brain from Dr. Mcneill to Dr. Bolton. 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 No new orders received, continue course of care.
--- NOTE | 2021-09-12 18:56 | NUR ---
Patient in room ICU 2044. I have received report from ARSEN Chapman and had the opportunity to ask questions and assume patient care.
[2021-09-12] MEDS: insulin glargine (Lantus) pen - multi-dose SQ SCH (20:01)
[2021-09-13] VITALS (55 sets, daily range): BP systolic 98–132; BP diastolic 36–90
[2021-09-13 02:45] LABS: ALANINE AMINOTRANSFERASE 45 U/L (12-78); ALBUMIN 2.4 G/DL (3.4-5.0); ALBUMIN/GLOBULIN RATIO 0.8 (1.1-1.5); ALKALINE PHOSPHATASE 60 IU/L (46-116); ANION GAP 5 (8-16); ASPARTATE AMINO TRANSFERASE 28 U/L (10-37); BILIRUBIN,TOTAL 0.2 MG/DL (0.1-1.0); BLOOD UREA NITROGEN 29 MG/DL (7-18); BUN/CREATININE RATIO 32.2 (5.4-32.0); CALCIUM 7.8 MG/DL (8.5-10.1); CHLORIDE 115 MMOL/L (99-107); GLUCOSE 118 MG/DL (70-104); POTASSIUM 5.1 MMOL/L (3.5-5.1); SODIUM 150 MMOL/L (135-145); TOTAL CARBON DIOXIDE 30.2 MMOL/L (24-32); TOTAL PROTEIN 5.3 G/DL (6.4-8.2); eGFR 85 ML/MIN
[2021-09-13] MEDS: ipratropium/albuterol 3ml nebule NEB SCH ×6 (03:34→23:37)
[2021-09-13 03:52] LABS: ABG HCO3 29.2 mmol/L (22.0-26.0); ABG OXYGEN SATURATION 94.2 % (94-97); ABG PCO2 (T) 82.7 mmHg (35.0-48.0); ABG PO2 (T) 81.4 mmHg (75.0-100.0); ALLEN'S TEST POSITIVE; FCOHb 0.3 % (0.0-3.9); FMetHb 0.2 % (0.0-1.5); FO2Hb 93.7 % (94-97); PATIENT TEMPERATURE 36.9; PEEP 10 cm H2O; RESPIRATORY RATE 26 b/min; TIDAL VOLUME 400 mL; TOTAL HEMOGLOBIN 10.9 G/dl (14.0-18.0)
[2021-09-13] MEDS: FENTANYL-0.9 % NACL/PF 100 ML IV PRN ×4 (06:08→22:59)
[2021-09-13] MEDS: K, MAG and/or Phos replacement - Verify level? MC SCH (08:00)
[2021-09-13] MEDS: aspirin 81mg tab.chew OGT SCH (08:32)
[2021-09-13] MEDS: piperacillin/tazo 3.375gm/50ml 50 ML IV SCH ×2 (08:32→16:00)
[2021-09-13] MEDS: carvedilol 6.25mg tablet PO SCH ×2 (08:32→20:32)
[2021-09-13] MEDS: pantoprazole 40MG/NS 100ML BAG 100 ML IV SCH (08:32)
[2021-09-13] MEDS: lactobacillus rhamnosus 10,000 MMU CELLS/CAPSULE OGT SCH ×2 (08:32→20:34)
[2021-09-13] MEDS: atorvastatin 20mg tablet OGT SCH (08:33)
[2021-09-13] MEDS: methylPREDNISolone sod succ 125mg/2ml vial IV SCH ×2 (08:33→20:33)
[2021-09-13] MEDS: micafungin inj 100 MG in normal saline 100ml IV soln 100 ML IV SCH (08:33)
[2021-09-13] MEDS: heparin, porcine 5000 units/ml vial SQ SCH ×2 (08:33→20:33)
[2021-09-13] MEDS: NORepinephrine 8mg/ 250ml NS 250 ML IV SCH (09:02)
[2021-09-13] MEDS: normal saline 1000ml 1,000 ML IV SCH (09:55)
[2021-09-13] MEDS: propofol 1000mg/100ml bottle 100 ML IV SCH ×2 (11:02→17:41)
--- NOTE | 2021-09-13 14:10 | NUR ---
F/u 09/13: Pt remains on normothermic temperature management off cooling/rewarming per RN at rounds. Pt TF off this AM w/ GRV WNL per EMR. Per computer animator at rounds; TF to be off until off temperature maintenance w/ Propofol now off but to restart this AM. HUSSEIN d/w only small BM 09/11 since admit 09/08; enema to start today per . Addendum: 09/13/21 at [address] Amended: Links added.
--- NOTE | 2021-09-13 17:00 | NUR ---
Artic sun discontinued at this time
--- NOTE | 2021-09-13 17:29 | NUR ---
Per MDR, patient to have an eeg overnight once taken off artic sun. Order placed and POC discussed with oscillograph technician
--- NOTE | 2021-09-13 17:30 | NUR ---
PICC nurse unable to place line today, notified. Plan to reassess tomorrow.
--- NOTE | 2021-09-13 18:06 | NUR ---
Enema administered today at 1400. No BM yet.
--- NOTE | 2021-09-13 19:50 | NUR ---
Call in to Dr. Benson to report fine motor "shivering noted Lt chest/ upper arm area. Condition update given and all questions answered. Orders for Versed 2 mg IVP noted
[2021-09-13] MEDS ORDERED: midazolam 1 mg/ML 2ml injection IV ONE (19:55)
[2021-09-13] MEDS ORDERED: midazolam 1 mg/ML 2ml injection ONE (20:01)
--- NOTE | 2021-09-13 20:15 | NUR ---
No response to versed. Dr. Benson on Tele-Monitor. requests neuro consult to determine presence of seizure activity on continuous EEG that is in progress
--- NOTE | 2021-09-13 20:40 | NUR ---
First SOC application completed and submitted
[2021-09-13] MEDS: insulin glargine (Lantus) pen - multi-dose SQ SCH (21:00)
[2021-09-13 22:14] LABS: ALBUMIN 2.3 G/DL (3.4-5.0); ANION GAP 7 (8-16); BLOOD UREA NITROGEN 34 MG/DL (7-18); BUN/CREATININE RATIO 44.2 (5.4-32.0); CALCIUM 8.1 MG/DL (8.5-10.1); CHLORIDE 112 MMOL/L (99-107); CREATININE 0.77 MG/DL (0.60-1.10); GLUCOSE 89 MG/DL (70-104); MAGNESIUM 2.5 MG/DL (1.5-2.4); PHOSPHORUS 2.6 MG/DL (2.3-4.5); POTASSIUM 4.3 MMOL/L (3.5-5.1); SODIUM 150 MMOL/L (135-145); TOTAL CARBON DIOXIDE 31.4 MMOL/L (24-32); eGFR > 90 ML/MIN
--- NOTE | 2021-09-13 23:30 | NUR ---
Still unable to get tele neuro for consult despite 4 phone calls and 2 SOC consult requests. SOC director on phone with charge nurse at this time
--- NOTE | 2021-09-13 23:40 | NUR ---
Tele-neuro doctor on monitor. Condition update given. wit orders noted
[2021-09-14] VITALS (33 sets, daily range): BP systolic 99–143; BP diastolic 51–78
[2021-09-14] MEDS ORDERED: levetiracetam-NS 1000mg/100ml 100 ML IV ONE (01:27)
[2021-09-14 01:58] LABS: ABG BASE EXCESS 1.3 mmol/L (-2.0-2.0); ABG HCO3 27.8 mmol/L (22.0-26.0); ABG PO2 (T) 68.1 mmHg (75.0-100.0); ALLEN'S TEST POSITIVE; FCOHb 0.3 % (0.0-3.9); FMetHb 0.2 % (0.0-1.5); FO2Hb 92.5 % (94-97); PEEP 10 cm H2O; RESPIRATORY RATE 26 b/min; TIDAL VOLUME 400 mL; TOTAL HEMOGLOBIN 10.6 G/dl (14.0-18.0)
[2021-09-14] MEDS: ipratropium/albuterol 3ml nebule NEB SCH ×6 (02:32→23:35)
[2021-09-14 03:14] LABS: ALBUMIN 2.3 G/DL (3.4-5.0); ANION GAP 5 (8-16); BLOOD UREA NITROGEN 34 MG/DL (7-18); BUN/CREATININE RATIO 43.6 (5.4-32.0); CALCIUM 8.3 MG/DL (8.5-10.1); CHLORIDE 112 MMOL/L (99-107); CREATININE 0.78 MG/DL (0.60-1.10); GLUCOSE 102 MG/DL (70-104); POTASSIUM 4.3 MMOL/L (3.5-5.1); SODIUM 148 MMOL/L (135-145); TOTAL CARBON DIOXIDE 30.8 MMOL/L (24-32); eGFR > 90 ML/MIN
[2021-09-14] MEDS: FENTANYL-0.9 % NACL/PF 100 ML IV PRN ×4 (03:44→20:17)
[2021-09-14] MEDS: K, MAG and/or Phos replacement - Verify level? MC SCH (08:00)
[2021-09-14] MEDS: levetiracetam-NS 1000mg/100ml 100 ML IV SCH ×2 (08:36→20:11)
[2021-09-14] MEDS: pantoprazole 40MG/NS 100ML BAG 100 ML IV SCH (08:36)
[2021-09-14] MEDS: piperacillin/tazo 3.375gm/50ml 50 ML IV SCH ×4 (08:36→23:55)
[2021-09-14] MEDS: atorvastatin 20mg tablet OGT SCH (08:37)
[2021-09-14] MEDS: lactobacillus rhamnosus 10,000 MMU CELLS/CAPSULE OGT SCH ×2 (08:37→20:12)
[2021-09-14] MEDS: micafungin inj 100 MG in normal saline 100ml IV soln 100 ML IV SCH (08:37)
[2021-09-14] MEDS: carvedilol 6.25mg tablet PO SCH ×2 (08:37→20:12)
[2021-09-14] MEDS: heparin, porcine 5000 units/ml vial SQ SCH ×2 (08:37→20:12)
[2021-09-14] MEDS: methylPREDNISolone sod succ/PF 40mg inj. IV SCH ×2 (08:37→20:12)
[2021-09-14] MEDS: aspirin 81mg tab.chew OGT SCH (08:37)
[2021-09-14] MEDS: propofol 1000mg/100ml bottle 100 ML IV SCH ×3 (10:13→23:56)
[2021-09-14 10:49] LABS: BASOPHILS % (AUTO) 0 % (0-1); EOSINOPHILS % (AUTO) 0 % (0-6); HEMATOCRIT 26.8 % (42.0-52.0); HEMOGLOBIN 8.8 g/dl (14.0-17.9); LYMPHOCYTES # (AUTO) 0.4 X10'3 (1.1-4.8); LYMPHOCYTES % (AUTO) 6.4 % (21-51); MEAN CORPUSCULAR HEMOGLOBIN 29.6 PG (27.0-31.0); MEAN CORPUSCULAR VOLUME 89.9 FL (78-98); MEAN PLATELET VOLUME 7.9 FL (7.4-10.4); MONOCYTES # (AUTO) 0.2 X10'3 (0-0.9); MONOCYTES % (AUTO) 4.2 % (2-12); NEUTROPHILS # (AUTO) 5.3 X10'3 (1.8-7.7); NEUTROPHILS % (AUTO) 89.4 % (42-75); PLATELET COUNT 162 X10'3 (140-440); RED BLOOD COUNT 2.98 X10'6 (4.70-6.10); RED CELL DISTRIBUTION WIDTH 15.6 % (11.5-14.5); WHITE BLOOD COUNT 5.9 X10'3 (4.5-11.0)
[2021-09-14 11:24] LABS: HYPOCHROMASIA 1+; PLATELET ESTIMATE NORMAL; TOTAL CELLS COUNTED 100
--- NOTE | 2021-09-14 17:04 | NUR ---
don[facility] network contacted referral number [id number]
--- NOTE | 2021-09-14 17:25 | NUR ---
[facility] contact. Referral number [id number], spoke with
--- NOTE | 2021-09-14 17:58 | NUR ---
Spoke with Sam from [facility] and reviewed pt chart. Stated that someone from [facility] would be coming to bedside to complete a full chart review.
[2021-09-14] MEDS: NORepinephrine 8mg/ 250ml NS 250 ML IV SCH (19:15)
[2021-09-14] MEDS: insulin glargine (Lantus) pen - multi-dose SQ SCH (20:13)
[2021-09-15] VITALS (34 sets, daily range): BP systolic 114–160; BP diastolic 61–99
[2021-09-15] MEDS: FENTANYL-0.9 % NACL/PF 100 ML IV PRN ×2 (01:57→05:54)
[2021-09-15 02:26] LABS: ABG BASE EXCESS 4.8 mmol/L (-2.0-2.0); ABG HCO3 29.6 mmol/L (22.0-26.0); ABG OXYGEN SATURATION 93.2 % (94-97); ABG PCO2 (T) 44.9 mmHg (35.0-48.0); ABG PO2 (T) 69.5 mmHg (75.0-100.0); ALLEN'S TEST POSITIVE; FCOHb 0.3 % (0.0-3.9); FMetHb 0.2 % (0.0-1.5); FO2Hb 92.7 % (94-97); PATIENT TEMPERATURE 36.9; PEEP 10 cm H2O; RESPIRATORY RATE 26 b/min; TIDAL VOLUME 400 mL; TOTAL HEMOGLOBIN 10.1 G/dl (14.0-18.0)
[2021-09-15] MEDS: ipratropium/albuterol 3ml nebule NEB SCH ×6 (03:13→23:09)
[2021-09-15 03:32] LABS: BASOPHILS % (AUTO) 0 % (0-1); EOSINOPHILS % (AUTO) 0 % (0-6); HEMATOCRIT 28.8 % (42.0-52.0); HEMOGLOBIN 9.4 g/dl (14.0-17.9); LYMPHOCYTES # (AUTO) 0.4 X10'3 (1.1-4.8); LYMPHOCYTES % (AUTO) 5.6 % (21-51); MEAN CORPUSCULAR HEMOGLOBIN 29.8 PG (27.0-31.0); MEAN CORPUSCULAR HGB CONC 32.8 g/dL (33.0-36.5); MEAN CORPUSCULAR VOLUME 90.9 FL (78-98); MEAN PLATELET VOLUME 8.1 FL (7.4-10.4); MONOCYTES # (AUTO) 0.3 X10'3 (0-0.9); MONOCYTES % (AUTO) 4.8 % (2-12); NEUTROPHILS # (AUTO) 5.8 X10'3 (1.8-7.7); NEUTROPHILS % (AUTO) 89.6 % (42-75); PLATELET COUNT 173 X10'3 (140-440); RED BLOOD COUNT 3.17 X10'6 (4.70-6.10); RED CELL DISTRIBUTION WIDTH 15.7 % (11.5-14.5); WHITE BLOOD COUNT 6.5 X10'3 (4.5-11.0)
[2021-09-15 04:13] LABS: ALBUMIN 2.2 G/DL (3.4-5.0); ANION GAP 6 (8-16); BLOOD UREA NITROGEN 36 MG/DL (7-18); CALCIUM 7.7 MG/DL (8.5-10.1); CHLORIDE 111 MMOL/L (99-107); CREATININE 0.72 MG/DL (0.60-1.10); GLUCOSE 175 MG/DL (70-104); POTASSIUM 4.4 MMOL/L (3.5-5.1); PREALBUMIN 23.4 MG/DL (19-36); SODIUM 150 MMOL/L (135-145); eGFR > 90 ML/MIN
[2021-09-15] MEDS: propofol 1000mg/100ml bottle 100 ML IV SCH ×2 (06:18→10:03)
[2021-09-15] MEDS: K, MAG and/or Phos replacement - Verify level? MC SCH (08:00)
[2021-09-15] MEDS: atorvastatin 20mg tablet OGT SCH (08:01)
[2021-09-15] MEDS: aspirin 81mg tab.chew OGT SCH (08:02)
[2021-09-15] MEDS: carvedilol 6.25mg tablet PO SCH ×2 (08:02→19:52)
[2021-09-15] MEDS: lactobacillus rhamnosus 10,000 MMU CELLS/CAPSULE OGT SCH ×2 (08:02→19:52)
[2021-09-15] MEDS: heparin, porcine 5000 units/ml vial SQ SCH ×2 (08:02→19:52)
[2021-09-15] MEDS: pantoprazole 40MG/NS 100ML BAG 100 ML IV SCH (08:05)
[2021-09-15] MEDS: methylPREDNISolone sod succ/PF 40mg inj. IV SCH ×2 (08:10→19:52)
[2021-09-15] MEDS: micafungin inj 100 MG in normal saline 100ml IV soln 100 ML IV SCH (08:12)
[2021-09-15] MEDS: piperacillin/tazo 3.375gm/50ml 50 ML IV SCH ×2 (08:12→16:55)
[2021-09-15] MEDS: levetiracetam-NS 1000mg/100ml 100 ML IV SCH ×2 (10:01→19:51)
[2021-09-15] MEDS ORDERED: NORMAL SALINE IV ONE (11:35)
[2021-09-15] MEDS ORDERED: DESMOPRESSIN IV ONE (11:35)
[2021-09-15] MEDS: midazolam 100mg in NS 100ml 100 ML IV PRN ×4 (11:36→23:52)
--- NOTE | 2021-09-15 11:48 | NUR ---
F/u 2/3: Pt remains intubated w/ TF restarted at 50ml/hr this AM during rounds. Pt Propofol restarted and increased to 31.74ml/hr providing additional 838 kcals/day however to wean down and change to versed today per multimedia teacher. IF propofol continues may require EN adjustment needs. No BM this admit 7 days; would benefit from routine bowel care this admit. Will continue to monitor for further nutrition intervention needs. Rec: 1. Continuous TF using Pivot 1.5 at 70ml/hr goal; would provide 1680ml volume/day, 2520 kcals, 1260ml water, and 158g protein. 2. Monitor Propofol rate and adjust TF as appropriate 3. Additional water flush 200ml Q4H; monitor serum Na 4. PALB Q /; daily wts 5. routine bowel care; 7 days constipation 6. upon extubation; advance diet as medically indicated to regular Addendum: 09/15/21 at [address] Amended: Links added.
[2021-09-15] MEDS: insulin regular, human U-100 3ml vial - multi-dose SQ SCH ×2 (13:50→19:54)
[2021-09-15] MEDS: NORepinephrine 8mg/ 250ml NS 250 ML IV SCH (18:52)
[2021-09-15] MEDS: insulin glargine (Lantus) pen - multi-dose SQ SCH (19:55)
[2021-09-16] VITALS (24 sets, daily range): BP systolic 77–150; BP diastolic 47–90
[2021-09-16] MEDS: insulin regular, human U-100 3ml vial - multi-dose SQ SCH (02:15)
[2021-09-16] MEDS: ipratropium/albuterol 3ml nebule NEB SCH ×4 (02:17→16:00)
[2021-09-16] MEDS ORDERED: propofol 1000mg/100ml bottle 100 ML IV ONE (02:20)
[2021-09-16] MEDS: propofol 1000mg/100ml bottle 100 ML IV SCH ×2 (02:25→09:34)
[2021-09-16 03:16] LABS: BASOPHILS % (AUTO) 0 % (0-1); EOSINOPHILS % (AUTO) 0 % (0-6); HEMATOCRIT 30.2 % (42.0-52.0); HEMOGLOBIN 9.8 g/dl (14.0-17.9); LYMPHOCYTES # (AUTO) 0.6 X10'3 (1.1-4.8); LYMPHOCYTES % (AUTO) 5.4 % (21-51); MEAN CORPUSCULAR HEMOGLOBIN 29.3 PG (27.0-31.0); MEAN CORPUSCULAR HGB CONC 32.5 g/dL (33.0-36.5); MEAN CORPUSCULAR VOLUME 90.1 FL (78-98); MEAN PLATELET VOLUME 8.1 FL (7.4-10.4); MONOCYTES # (AUTO) 0.4 X10'3 (0-0.9); MONOCYTES % (AUTO) 3.8 % (2-12); NEUTROPHILS # (AUTO) 10.1 X10'3 (1.8-7.7); NEUTROPHILS % (AUTO) 90.8 % (42-75); PLATELET COUNT 190 X10'3 (140-440); RED BLOOD COUNT 3.35 X10'6 (4.70-6.10); RED CELL DISTRIBUTION WIDTH 15.7 % (11.5-14.5); WHITE BLOOD COUNT 11.2 X10'3 (4.5-11.0)
[2021-09-16 03:31] LABS: ABG BASE EXCESS 2.3 mmol/L (-2.0-2.0); ABG HCO3 26.1 mmol/L (22.0-26.0); ABG OXYGEN SATURATION 92.4 % (94-97); ABG PCO2 (T) 37.3 mmHg (35.0-48.0); ABG PO2 (T) 70.8 mmHg (75.0-100.0); ALLEN'S TEST POSITIVE; FCOHb 0.3 % (0.0-3.9); FMetHb 0.3 % (0.0-1.5); FO2Hb 91.8 % (94-97); PATIENT TEMPERATURE 37.1; PEEP 10 cm H2O; RESPIRATORY RATE 26 b/min; TIDAL VOLUME 400 mL; TOTAL HEMOGLOBIN 9.9 G/dl (14.0-18.0)
[2021-09-16 03:36] LABS: ALBUMIN 2.3 G/DL (3.4-5.0); ANION GAP 5 (8-16); BLOOD UREA NITROGEN 29 MG/DL (7-18); BUN/CREATININE RATIO 45.3 (5.4-32.0); CALCIUM 7.7 MG/DL (8.5-10.1); CHLORIDE 108 MMOL/L (99-107); CREATININE 0.64 MG/DL (0.60-1.10); GLUCOSE 123 MG/DL (70-104); POTASSIUM 4.6 MMOL/L (3.5-5.1); SODIUM 149 MMOL/L (135-145); TOTAL CARBON DIOXIDE 36.2 MMOL/L (24-32); eGFR > 90 ML/MIN
[2021-09-16] MEDS: midazolam 100mg in NS 100ml 100 ML IV PRN ×3 (04:53→19:02)
[2021-09-16 04:58] LABS: TOTAL CELLS COUNTED 100
[2021-09-16 05:01] LABS: ANISOCYTOSIS 2+; PLATELET ESTIMATE NORMAL; POLYCHROMASIA 1+
[2021-09-16] MEDS: levetiracetam-NS 1000mg/100ml 100 ML IV SCH (07:32)
[2021-09-16] MEDS: methylPREDNISolone sod succ/PF 40mg inj. IV SCH (07:32)
[2021-09-16] MEDS: aspirin 81mg tab.chew OGT SCH (07:32)
[2021-09-16] MEDS: atorvastatin 20mg tablet OGT SCH (07:33)
[2021-09-16] MEDS: lactobacillus rhamnosus 10,000 MMU CELLS/CAPSULE OGT SCH (07:33)
[2021-09-16] MEDS: carvedilol 6.25mg tablet PO SCH (07:33)
[2021-09-16] MEDS: K, MAG and/or Phos replacement - Verify level? MC SCH (07:34)
[2021-09-16] MEDS: heparin, porcine 5000 units/ml vial SQ SCH (07:36)
[2021-09-16] MEDS: pantoprazole 40MG/NS 100ML BAG 100 ML IV SCH (07:37)
[2021-09-16] MEDS: micafungin inj 100 MG in normal saline 100ml IV soln 100 ML IV SCH (07:38)
[2021-09-16] MEDS ORDERED: NORMAL SALINE IV ONE ×2 (09:25→09:45)
[2021-09-16] MEDS ORDERED: FOSPHENYTOIN IV ONE (09:25)
[2021-09-16] MEDS ORDERED: PHENYTOIN SOD IV ONE (09:45)
--- NOTE | 2021-09-16 11:19 | NUR ---
Spoke with Darius from [facility] to inform them that the family is at bedside and intending on transferring the patient over to comfort care measures. Son, brother, and Karey(correspondence coordinator at the [facility]) at bedside. He stated that someone would be reaching out from [facility].
--- NOTE | 2021-09-16 11:28 | NUR ---
Spoke with Angely from [facility]. She stated that right now he is not a candidate for organ donation. However, she said to call them with cardiac time of and the tissues coordinator would get in contact with us.
[2021-09-16] MEDS ORDERED: LORazepam 2 mg/ml vial IV PRN (11:45)
--- NOTE | 2021-09-16 12:45 | NUR ---
Family at bedside told this RN that they are ready to proceed with comfort care measures. This RN paged respiratory therapy to come and terminally extubate patient in accordance with the comfort care orders. Gave comfort care meds per MD order and family is staying at bedside with patient until expiration. MD spoke with son and family wants to use [employer]. Will coordinate appropriately.
[2021-09-16] MEDS: morphine 10mg/ml inj. IV PRN ×4 (12:52→18:03)
[2021-09-16] MEDS: FENTANYL-0.9 % NACL/PF 100 ML IV PRN ×2 (14:09→17:16)
[2021-09-16] MEDS ORDERED: atropine sulfate 1% ophthalmic drops SL PRN (16:40)
--- NOTE | 2021-09-16 19:20 | NUR ---
RN IS TO DOCUMENT YES TO ALL APPLICABLE AREAS Pronouncement of : 1. Time Physician Notified:[id number] 2. Date of : 09/16/2021 3. Time of : 1907 4. DNR/Withdraw life support documented: Yes 5. Monitor strip has been placed on chart:Yes 6. Assessment process is of one-minute duration and includes following criteria: a) Patient is unresponsive to all stimuli: Yes b) Pupils fixed and non-reactive: Yes c) Auscultation of precordium reveals absence of heart tones:Yes d) Auscultation of lungs reveals absence of breath sounds:Yes e) Absence of blood pressure / all vital signs:Yes f) QRS complexes are not present on monitor / EKG strip:Yes g) Pacer spikes without capture:Yes 4. Comments:N/A
== END 2021-09-16 19:08 | DRG 207 ==
LOC: ER 20:48 → UNDOADMIN 23:11 → ED HOLD 23:11 → ICU 2S 09-09 00:25
PROVIDERS: ADMIT Internal Medicine Critical Care Medicine; ATTEND Internal Medicine Critical Care Medicine
PROC: 06HY33Z Insertion of Infusion Device into Lower Vein, Percutaneous Approach (ICD-10-PCS; 2021-09-08)
PROC: 5A1955Z Respiratory Ventilation, Greater than 96 Consecutive Hours (ICD-10-PCS; principal; 2021-09-09)
PROC: 0BH17EZ Insertion of Endotracheal Airway into Trachea, Via Natural or Artificial Opening (ICD-10-PCS; 2021-09-09)
PROC: B32T1ZZ Computerized Tomography (CT Scan) of Left Pulmonary Artery using Low Osmolar Contrast (ICD-10-PCS; 2021-09-09)
PROC: B3201ZZ Computerized Tomography (CT Scan) of Thoracic Aorta using Low Osmolar Contrast (ICD-10-PCS; 2021-09-09)
PROC: B32S1ZZ Computerized Tomography (CT Scan) of Right Pulmonary Artery using Low Osmolar Contrast (ICD-10-PCS; 2021-09-09)
PROC: B4201ZZ Computerized Tomography (CT Scan) of Abdominal Aorta using Low Osmolar Contrast (ICD-10-PCS; 2021-09-09)
PROC: B4241ZZ Computerized Tomography (CT Scan) of Superior Mesenteric Artery using Low Osmolar Contrast (ICD-10-PCS; 2021-09-09)
PROC: B4281ZZ Computerized Tomography (CT Scan) of Bilateral Renal Arteries using Low Osmolar Contrast (ICD-10-PCS; 2021-09-09)
PROC: B42C1ZZ Computerized Tomography (CT Scan) of Pelvic Arteries using Low Osmolar Contrast (ICD-10-PCS; 2021-09-09)
PROC: B4211ZZ Computerized Tomography (CT Scan) of Celiac Artery using Low Osmolar Contrast (ICD-10-PCS; 2021-09-09)
PROC: 4A10X4Z Monitoring of Central Nervous Electrical Activity, External Approach (ICD-10-PCS; 2021-09-14)
PROC: 02HV33Z Insertion of Infusion Device into Superior Vena Cava, Percutaneous Approach (ICD-10-PCS; 2021-09-14)
PROC: B548ZZA Ultrasonography of Superior Vena Cava, Guidance (ICD-10-PCS; 2021-09-14)
DX: J96.01 Acute respiratory failure with hypoxia (principal); I21.4 Non-ST elevation (NSTEMI) myocardial infarction; I63.9 Cerebral infarction, unspecified; R65.21 Severe sepsis with septic shock; N17.9 Acute kidney failure, unspecified; E87.0 Hyperosmolality and hypernatremia; G93.1 Anoxic brain damage, not elsewhere classified; B49 Unspecified mycosis; J44.1 Chronic obstructive pulmonary disease with (acute) exacerbation; T82.838A Hemorrhage due to vascular prosthetic devices, implants and grafts, initial encounter; J96.02 Acute respiratory failure with hypercapnia; Z66 Do not resuscitate; B37.9 Candidiasis, unspecified; Z20.822 Contact with and (suspected) exposure to COVID-19; T15.92XA Foreign body on external eye, part unspecified, left eye, initial encounter; I46.9 Cardiac arrest, cause unspecified; G89.29 Other chronic pain; R31.0 Gross hematuria; M54.9 Dorsalgia, unspecified; G25.3 Myoclonus; K76.9 Liver disease, unspecified; R56.9 Unspecified convulsions; Z63.8 Other specified problems related to primary support group; E87.6 Hypokalemia; Y83.8 Other surgical procedures as the cause of abnormal reaction of the patient, or of later complication, without mention of misadventure at the time of the procedure; Y92.230 Patient room in hospital as the place of occurrence of the external cause; Z51.5 Encounter for palliative care
CPT/HCPCS: 31500; 36415; 36569; 36600; 70450; 70551; 71045; 71275; 74174; 76700; 76942; 80048; 80053; 80202; 80305; 81001; 82140; 82550; 82553; 82803; 82810; 82948; 83036; 83605; 83735; 83880; 84100; 84134; 84145; 84478; 84484; 85007; 85018; 85025; 85384; 85610; 85730; 86885; 86900; 86901; 87040; 87070; 87081; 87635; 93005; 93306; 94002; 94003; 94640; 94760; 94799; 95720; 96374; 99291; A7015; C9113; C9803; G0378; J0456; J0696; J1165; J1450; J1644; J1815; J1953; J2060; J2248; J2250; J2274; J2543; J2597; J2704; J2920; J2930; J3010; J3370; J3490; J7030; J7040; Q9967